=== PATIENT | male | born 1970 | race Hispanic/Latino ===

== ENCOUNTER → 2020-03-22 | Outpatient (CLI) | payer BC ==
[2020-03-22 12:29] LABS: POTASSIUM 3.7 mmol/L (3.5-5.1)
== END | disposition home or self-care (01) ==
LOC: LAB 11:49
PROVIDERS: ATTEND Family Medicine
DX: G89.29 Other chronic pain (principal)
CPT/HCPCS: 36415; 80048

== ENCOUNTER → 2020-04-17 | Outpatient (CLI) | payer BC ==
[~2020-04-17] MED LIST: IOHEXOL-350 50ML VIAL IV ONE
== END | disposition home or self-care (01) ==
LOC: RAH 10:42
PROVIDERS: ATTEND Family Medicine
DX: R55 Syncope and collapse (principal)
CPT/HCPCS: 70470; Q9967

== ENCOUNTER → 2020-10-31 | Outpatient (CLI) | payer BC | END | disposition home or self-care (01) | LOC: RAH 10:43 | PROVIDERS: ATTEND Family Medicine | DX: M79.89 Other specified soft tissue disorders (principal); R06.02 Shortness of breath; M47.815 Spondylosis without myelopathy or radiculopathy, thoracolumbar region; Z86.16 Personal history of COVID-19 | CPT/HCPCS: 71046 ==

== ENCOUNTER → 2021-01-05 | Outpatient (CLI) | payer BC | END | disposition home or self-care (01) | LOC: RAH 10:44 | PROVIDERS: ATTEND Family Medicine | DX: M79.89 Other specified soft tissue disorders (principal) | CPT/HCPCS: 71270; Q9967 ==